=== PATIENT | male | born 1980 | race Caucasian/White ===

== ENCOUNTER 2020-02-27 11:41 | Observation (INO) ==
[2020-02-27] MEDS ORDERED: ONDANSETRON INJ 2 MG/ML 2 ML VIAL IV STA (12:06)
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
[2020-02-27] MEDS ORDERED: SODIUM CHLORIDE 0.9% 1000ML 1,000 ML IV SCH (12:15)
--- NOTE | 2020-02-27 12:21 | XRay Report ---
XR chest 1V portable CLINICAL HISTORY: Altered mental status COMPARISON STUDY: No previous studies for comparison. FINDINGS: The heart is the upper limits of normal in size. There is no failure. There is no focal pul monary consolidation. There are no pleural effusions. An opacity at the right medial lung base is fel t to represent a vascular summation.[ IMPRESSION: No active disease in the chest. ACT 112: Negative or not required by law. Electronically signed by: Jesus Charles M.D. 02/27/2020 12:20 PM
[2020-02-27 12:30] LABS: Appearance Urine Clear (Clear); Bacteria Urine Automated Negative (Negative); Bilirubin Urine Negative (Negative); Blood Urine 3+ (Negative); Color Urine Yellow; Glucose Urine UA Negative (Negative); Ketones Urine 2+ (Negative); Leukocyte Esterase Urine Trace (Negative); Nitrite Urine Negative (Negative); Protein Urine 1+ (Negative); RBC Urine Automated >30 /hpf (0-4); Specific Gravity Urine 1.027 (1.000-1.030); Urobilinogen Urine Negative (Negative)
--- NOTE | 2020-02-27 12:46 | Electrocardiogram Report ---
Test Reason : Blood Pressure : / mmHG Vent. Rate : 076 BPM Atrial Rate : 076 BPM P-R Int : 134 ms QRS Dur : 086 ms QT Int : 402 ms P-R-T Axes : 030 024 038 degrees QTc Int : 452 ms Normal sinus rhythm Normal ECG No previous ECGs available Confirmed by Wei Nogueira ([id number]) on 02/27/2020 12:46:38 PM Referred By: REFERRED SELF Confirmed By:Wei Nogueira
[2020-02-27 12:54] LABS: Basophils # (auto) 0.02 K/uL (0-0.2); Basophils % (auto) 0.1 %; Hematocrit (blood only) 44.5 % (42-52); Hemoglobin 15.1 g/dL (14.0-18.0); Immature Granulocytes # (auto) 0.12 K/uL (0.00-0.02); Immature Granulocytes % (auto) 0.6 %; Lymphocytes # (auto) 1.32 K/uL (1.2-3.4); Lymphocytes % (auto) 6.4 %; Mean Corpuscular Hemoglobin 29.7 pg (25-34); Mean Corpuscular Hgb Conc 33.9 g/dL (32-36); Mean Corpuscular Volume 87.4 fL (80-100); Mean Platelet Volume 9.3 fL (7.4-10.4); Monocytes # (auto) 1.67 K/uL (0.11-0.59); Monocytes % (auto) 8.1 %; Neutrophils # (auto) 17.54 K/uL (1.4-6.5); Neutrophils % (auto) 84.8 %; Platelet Count 450 K/uL (130-400); RDW Coefficient of Variation 14.3 % (11.5-14.5); RDW Standard Deviation 45.7 fL (36.4-46.3); Red Blood Count 5.09 M/uL (4.7-6.1); White Blood Count 20.67 K/uL (4.8-10.8)
[2020-02-27 12:55] LABS: iSTAT Creatinine 1.2 mg/dl (0.6-1.3); iSTAT Hemoglobin 15.6 g/dl (14.0-18.0); iSTAT Ionized Calcium 1.22 mmol/l (1.12-1.32); iSTAT Potassium 3.9 mmol/L (3.3-5.0)
[2020-02-27] MEDS ORDERED: IOVERSOL 100ml IV PRN (13:06)
[2020-02-27] MEDS ORDERED: cefTRIAXone SODIUM 1,000 MG/50 ML BAG IV STA (13:08)
[2020-02-27 13:12] LABS: Alanine Aminotransferase 77 U/L (12-78); Albumin Level 3.9 gm/dl (3.4-5.0); Aspartate Aminotransferase 83 U/L (15-37); BUN Creatinine Ratio 19.9 (10-20); Blood Urea Nitrogen 25 mg/dl (7-18); Calcium 9.6 mg/dl (8.5-10.1); Carbon Dioxide 22 mmol/L (21-32); Chloride 109 mmol/L (98-107); Est GFR (African American) 82.5; Est GFR (Non-African American) 71.2; Glucose 100 mg/dl (70-99); Lipase 133 U/L (73-393); Potassium 3.9 mmol/L (3.5-5.1); Sodium 140 mmol/L (136-145)
--- NOTE | 2020-02-27 13:14 | CT Scan Report ---
HEAD CT NONCONTRAST CT DOSE: 788.63 mGycm HISTORY: Altered mental status. TECHNIQUE: Multiaxial CT images of the head were performed without the use of intravenous contrast. A utomated exposure control was utilized for this study. A dose lowering technique was utilized adheri ng to the principles of ALARA. Comparison: None. Findings: The paranasal sinuses and mastoid air cells are clear. The calvarium and skull base are int act. The ventricles and sulci are within normal limits. There is no mass, hematoma, midline shift, or acute infarct. Impression: No acute intracranial abnormality. ACT 112: Negative or not required by law. Electronically signed by: Donavon Robles M.D. 02/27/2020 1:12 PM
--- NOTE | 2020-02-27 13:21 | CT Scan Report ---
CT SCAN OF THE ABDOMEN AND PELVIS WITH IV CONTRAST CLINICAL HISTORY: Left lower quadrant abdominal pain. COMPARISON STUDY: No priors. TECHNIQUE: Following the IV administration of 94 cc of Optiray 320, CT scan of the abdomen and pelvi s is performed from the lung bases to the proximal femora. Images are reviewed in the axial, sagittal , and coronal planes. IV contrast was administered without complication. A dose lowering technique wa s utilized adhering to the principles of ALARA. The examination is degraded by motion artifact, as we ll as by streak artifact from the arms which could not be elevated above the abdomen. CT DOSE: 1415.23 mGycm FINDINGS: Lung bases: The heart is normal in size and without pericardial effusion. The lung bases are clear no ting dependent atelectasis. There is a small hiatal hernia. Liver: The contrast-enhanced liver is mildly enlarged, measuring 18.2 cm in length. The liver demonst rates diffusely diminished attenuation consistent with hepatic steatosis. Fatty sparing is seen adjac ent to gallbladder fossa. There is no intrahepatic biliary ductal dilatation. The hepatic veins and p ortal veins are patent. Gallbladder: Unremarkable. Spleen: Normal in size and attenuation. Pancreas: Unremarkable. Adrenal glands: Unremarkable. Kidneys: The contrast enhanced kidneys are normal in size. There is a 4 mm obstructing calculus protr uding from the right vesicoureteral junction seen on image #452. This causes mild to moderate right-s ided hydroureteronephrosis. There is associated right-sided perinephric and periureteric stranding. E nhancement of the right kidney is slightly heterogeneous. No additional renal calculi are clearly rajni ntified on this contrast-enhanced examination. There is no left-sided hydronephrosis. Abdominal vasculature: The abdominal aorta is normal in course and caliber. Bowel: There is no bowel obstruction. The appendix is well-visualized and normal. Peritoneum: There is no intraperitoneal free air or abdominal ascites. There is a small fat-containin g umbilical hernia. Lymphadenopathy: None. Pelvic viscera: The bladder, prostate, and seminal vesicles are normal as visualized. There are small bilateral fat-containing inguinal hernias. Skeletal structures: No lytic or blastic lesions are seen. IMPRESSION: 1. Streak and motion degraded examination. 2. There is a 4 mm obstructing calculus protruding from the right vesicoureteral junction. This cause s mild to moderate right-sided hydroureteronephrosis. 3. There is slightly heterogeneous enhancement of the right kidney, likely related to obstruction/hyd ronephrosis. Correlate clinically and with urinalysis for evidence of superimposed urinary tract infe ction. 4. Hepatomegaly and hepatic steatosis. 5. Additional findings as above. ACT 112: Negative or not required by law. Electronically signed by: Jesus Grady M.D. 02/27/2020 1:20 PM
[2020-02-27 13:23] LABS: Alkaline Phosphatase 74 U/L (45-117); Bilirubin,Total 0.6 mg/dl (0.2-1); Globulin 4.1 gm/dl (2.5-4.0); Troponin I < 0.015 ng/ml (0-0.045)
[2020-02-27 13:38] LABS: Base Excess VBG -2.6 mEq/L; HCO3 VBG 24 mmol/L; PCO2 VBG 46 mmHg (38-50); PO2 VBG 31 mmHg; pH VBG 7.33 (7.36-7.41)
[2020-02-27] MEDS ORDERED: SODIUM CHLORIDE 0.9% 1000ML 1,000 ML IV ONE (13:41)
[2020-02-27 13:45] LABS: Oxygen Saturation VBG < 60.0 %
[2020-02-27] MEDS ORDERED: MoRPHine SULFATE 2 MG/ML CARP IV STA (15:04)
--- NOTE | 2020-02-27 15:05 | History & Physical Report ---
Date of Service February 27, 2020 Assessment & Plan (1) Abdominal pain: (2) Hydronephrosis with urinary obstruction due to renal calculus: This is a 39-year-old male who has significant past medical history of intellectual disability, schizophrenia, major depressive disorder, history of seizure disorder with last known seizure at the age of 23, T2DM, HTN, GERD, obesity who presents to ED from [facility] secondary to tachycardia, tachypnea and inability to communicate needs. CT scan abd/pelvis 4 mm obstructing calculus protruding from the right vesicoureteral junction. This causes mild to moderate right-sided hydroureteronephrosis. Slightly heterogeneous enhancement of the right kidney, likely related to obstruction/hydronephrosis. Correlate clinically and with urinalysis for evidence of superimposed urinary tract infection. He does not meet SIRS/Sepsis criteria, but does have leukocytosis of 20k. In ED he received 3L IVF along with IV ceftriaxone admit to med/surg consult urology - spoke with VISHAL Gomez continue IV antibiotics continue IVF strain all urine remain NPO until seen by urology scheduled toradol ( feel pt is unable to communicate to staff when in pain ) prn pain meds for severe pain antiemetics continue home flomax obtain blood cultures, urine tox screen (3) Intellectual disability: (4) Schizophrenia: continue haloperidol, gabapentin low threshold for psych involvement (5) Seizures: no seizure like activity according to records/pt last seizure at age 23 continue lithium, gabapentin lithium level 0.7 (6) Hypertension: BP mildly elevated in ED, likely due to pain continue metoprolol and diltiazem (7) Diabetes mellitus: unknown a1c, obtain in a.m. He is not on any hypoglycemics Novolog sliding scale per protocol monitor (8) GERD (gastroesophageal reflux disease): continue PPI (9) DVT prophylaxis: SCD/TEDS for now due to possible surgical procedure Disposition: admit to med/surg, pt admitted from the [facility], case management consulted Follow up: Provider at [facility] upon discharge Pt was seen and examined in collaboration with Dr. Santoro, please see addendum Pt sr. social media & mobile manager from [place] [employer] is Lamonte and can be contacted at [phone] The [facility] contact info is [phone] - disease case manager Ann [place] 359 History of Present Illness Chief Complaint: Change in mental status, tachypnea and tachycardia. Primary Care Provider: SE BAXTER This is a 39-year-old male who has significant past medical history of intellectual disability, schizophrenia, major depressive disorder, history of seizure disorder with last known seizure at the age of 23, T2DM, HTN, GERD, obesity who presents to ED from [facility] secondary to tachycardia, tachypnea and inability to communicate needs. History unreliable from patient given current state. I did speak with [facility] nurse Eliazar who states at baseline patient is very low functioning. He has most inability to maintain meaningful conversation, and mostly will reiterate speech. This morning when he got up they noted him to be tachycardic, tachypneic and inability to communicate what was going on; therefore, they sent him to ED for further evaluation. The patient was sent to the [facility] on 02/20/2020. He had otherwise been doing fine until today. He did not have anything to eat or drink yet today. In speaking with the patient he states that he has not felt well since last night. He complains of abdominal pain, nausea, feeling feverish and general malaise. He denies any documented fever, chills, sweats, chest pain, shortness of breath, palpitations, cough, hematemesis, hemoptysis, melena, hematochezia, change in bowel or urinary habits. Again ROS relatively unreliable. He denies any suicidal or homicidal ideations. When asked what kind of medical problems he has he states, "I do not know." He denies illicit drug use or overdose of illicit substance. He denies smoking. Hx alcohol use, "once in a blue blake with a beer." Allergies Allergy/AdvReac Type Severity Reaction Status Date / Time phenobarbital AdvReac Severe Becomes Unverified 02/27/20 12:46 very mean Home Medications Home Medications Medication Instructions Recorded Confirmed Type diltiazem HCl [Cardizem CD] 120 mg PO QAM 02/27/20 02/27/20 History gabapentin 300 mg PO BID 02/27/20 02/27/20 History haloperidol 10 mg PO BID 02/27/20 02/27/20 History hydroxyzine pamoate 100 mg PO HS 02/27/20 02/27/20 History lithium carbonate 450 mg PO BID 02/27/20 02/27/20 History loratadine [Claritin] 10 mg PO QAM 02/27/20 02/27/20 History metoprolol succinate 150 mg PO QAM 02/27/20 02/27/20 History pantoprazole 40 mg PO QAM 02/27/20 02/27/20 History tamsulosin [Flomax] 0.4 mg PO HS 02/27/20 02/27/20 History Past Med/Surg History Medical History (Updated 02/28/20 @ 12:48 by Stephen Valenzuela MD) Diabetes mellitus GERD (gastroesophageal reflux disease) Hypertension Hypothyroidism (acquired) Intellectual disability Obesity Schizophrenia Seizures Surgical History (Updated 02/27/20 @ 15:08 by Deepa Reid PA-C) History of foot surgery History of skin graft L foot Family History (Updated 02/27/20 @ 15:09 by Deepa Reid PA-C) Other Family history unobtainable due to patient's condition Social History (Updated 02/27/20 @ 15:11 by Deepa Reid PA-C) Preferred Language: Eritrean Communication Ability: Impaired Service Center Manager Required: No Current Living Situation: Alone Current Living Situation Comment: Unknown - transfer to ER from [place] current occupational status: unemployed Feels Safe at Home: Yes Smoking Status: Unknown if ever smoked Review of Systems Review of Systems: All systems reviewed & are unremarkable except as noted in HPI & below Physical Exam Physical Exam: Constitutional: Morbidly obese, male, acutely ill, WD/WN, vitals as above, NAD, lying in bed, tachypneic, answers yes/no questions Head: Normocephalic, Atraumatic Eyes: PERRL, conjunctivae normal, anicteric sclerae ENMT: external ear and nose normal, oropharynx dry mucous membranes Neck: trachea midline, no thyromegaly normal visual inspection Respiratory: increased respiratory effort, lungs clear to auscultation, no wheeze, rales, rhonchi. Normal insp/exp effort, no accessory muscle use Cardiovascular: RRR, no murmur, no edema Vessels: no JVD or carotid bruit Chest: normal inspection of chest Abdomen:protuberant abd, normal bowel sounds, soft, tender to palpation suprapubically, no hepatosplenomegaly Musculoskeletal: no cyanosis or clubbing,AROM to all extremities , L foot skin graft noted Skin: no rashes, warm and dry normal turgor Neurologic: PERRL, EOMI, accommodation nl, no face palsy, no dysarthria CN's II-XI intact bilaterally and moves all extremities Psychiatric: A+O to self and place, dysthymic affect Lymphatic: no cervical or axillary lymphadenopathy : deferred Results & Data Results & Data ([facility]) Vital Signs (Past 12 Hours) Vital Signs Temp Pulse Pulse Resp BP BP Pulse Ox 02/27/20 14:13 87 18 149/84 H 98 02/27/20 13:23 82 18 141/76 H 98 02/27/20 12:37 84 18 152/99 H 93 02/27/20 11:57 36.8 C 92 H 18 141/84 H 98 Laboratory Results Short CBC 02/27/20 Range/Units 12:46 WBC 20.67 H (4.8-10.8) K/uL Hgb 15.1 (14.0-18.0) g/dL Hct 44.5 (42-52) % Plt Count 450 H (130-400) K/uL BMP 02/27/20 12:46 Sodium 140 Potassium 3.9 Chloride 109 H Carbon Dioxide 22 BUN 25 H Creatinine 1.27 Glucose 100 H Calcium 9.6 Cardiac Enzymes 02/27/20 Range/Units 12:46 Troponin I < 0.015 (0-0.045) ng/ml Liver Function 02/27/20 Range/Units 12:46 Total Bilirubin 0.6 (0.2-1) mg/dl AST 83 H (15-37) U/L ALT 77 (12-78) U/L Alkaline Phosphatase 74 (45-117) U/L Albumin 3.9 (3.4-5.0) gm/dl Urine 02/27/20 Range/Units 11:55 Urine Color Yellow Urine Appearance Clear (Clear) Urine pH 5.0 (4.5-7.5) Ur Specific [place] 1.027 (1.000-1.030) Urine Protein 1+ H (Negative) Urine Glucose (UA) Negative (Negative) Diagnostic Findings Head CT: Impression: No acute intracranial abnormality. CXR: IMPRESSION: No active disease in the chest. CT abd/pelvis: 1. Streak and motion degraded examination. 2. There is a 4 mm obstructing calculus protruding from the right vesicoureteral junction. This causes mild to moderate right-sided hydroureteronephrosis. 3. There is slightly heterogeneous enhancement of the right kidney, likely related to obstruction/hydronephrosis. Correlate clinically and with urinalysis for evidence of superimposed urinary tract infection. 4. Hepatomegaly and hepatic steatosis. 5. Additional findings as above. Medications Administered Ioversol (Optiray 320 100ml) 94 ml IV ONCE PRN PRN Reason: Interaction Checking Stop: 03/02/20 13:05 Last Admin: 02/27/20 13:07 Dose: 94 ml Documented by: [id number] Discontinued Medications Sodium Chloride (Nss 1000ml) 1,000 mls @ 999 mls/hr IV .Q1H1M COREY Stop: 02/27/20 13:15 Last Infusion: 02/27/20 13:30 Dose: 0 mls/hr Documented by: [id number] Admin: 02/27/20 12:23 Dose: 999 mls/hr Documented by: [id number] Ceftriaxone Sodium (Rocephin) 1,000 mg in 50 mls @ 100 mls/hr IV NOW STA Stop: 02/27/20 13:37 Last Infusion: 02/27/20 14:06 Dose: 0 mls/hr Documented by: [id number] Admin: 02/27/20 13:30 Dose: 100 mls/hr Documented by: [id number] Sodium Chloride (Nss 1000ml) 1,000 mls @ 999 mls/hr IV .Q1H1M ONE Stop: 02/27/20 14:41 Last Admin: 02/27/20 14:13 Dose: 999 mls/hr Documented by: [id number] Ondansetron HCl (Zofran) 4 mg IV NOW STA Stop: 02/27/20 12:07 Last Admin: 02/27/20 12:23 Dose: 4 mg Documented by: [id number] ECG Rate (beats per minute): 76 Rhythm: normal sinus Additional Comments: QTC 452 Code Status & VTE Plan Code Status Full Code VTE Prophylaxis Plan VTE Prophylaxis will be ordered: Yes Supervising Physician Co-Signing Physician Notes ATTENDING ADDENDUM : 39 yo male with intellectual disability , depression , hx of Seizure disorder , Schoziphrenia sent from [facility] facility for concern -tachycardia , tachypnia , pt unable to communicate his discomfort CT abdomen /pelvis shows rt sided 4 mm obstructive ureteric stone no evidence of sepsis admitted to medical floor pt possibly will need urologic procedure , ureteric stent placement keep NPO till urology eval pain control Iv fluid empiric abx with Iv rocephin for complicated UTI Kaylie Santoro MD (1) Abdominal pain Abdominal location: left lower quadrant Qualified Code(s): R10.32 - Left lower quadrant pain
[2020-02-27 15:14] LABS: D Dimer 300 ug/L FEU (0-500)
[2020-02-27] MEDS ORDERED: CARBOHYDRATES FOR HYPOGLYCEMIA PO PRN (15:56)
[2020-02-27] MEDS ORDERED: GLUCOSE 10 TABS/TUBE PO PRN (15:56)
[2020-02-27] MEDS ORDERED: cefTRIAXone SODIUM 1,000 MG in DEXTROSE 5% 50 ML IV SCH (15:56)
[2020-02-27] MEDS ORDERED: PROMETHAZINE HCL 12.5 MG in SODIUM CHLORIDE 0.9% 50 ML IV PRN (15:56)
[2020-02-27] MEDS ORDERED: DEXTROSE 50% 50 ML SYRINGE IV PRN (15:56)
[2020-02-27] MEDS ORDERED: ALUMINUM/MAGNESIUM SUSP 30 ML UDC PO PRN (15:56)
[2020-02-27] MEDS ORDERED: HYDROmorphone INJ 1 MG/ML SYRINGE IV PRN (15:56)
[2020-02-27] MEDS ORDERED: MAGNESIUM HYDROXIDE SUSP 30 ML UDC PO PRN (15:56)
[2020-02-27] MEDS ORDERED: ACETAMINOPHEN 325 MG TAB PO PRN (15:56)
[2020-02-27] MEDS ORDERED: GLUCAGON FOR INJ 1 MG VIAL SQ PRN (15:56)
[2020-02-27] MEDS ORDERED: GLUCOSE 40% GEL 15 GM TUBE PO PRN (15:56)
[2020-02-27] MEDS: LACTATED RINGER'S 1,000 ML IV SCH (16:12)
[2020-02-27] MEDS ORDERED: INSULIN ASPART 100 UNITS/ML 3 ML PEN SC SCH ×3 (16:30→21:00)
[2020-02-27] MEDS: KETOROLAC TROMETHAMINE 15 MG/ML VIAL IV SCH ×2 (16:55→21:09)
[2020-02-27] MEDS ORDERED: Nursing to Pharmacy Communication ONE ×3 (16:56→23:22)
[2020-02-27 21:31] LABS: Amphetamines+Metham, Urine Neg (Neg); Barbiturates, Urine Neg (Neg); Benzodiazepine, Urine Neg (Neg); Cocaine, Urine Neg (Neg); MDMA (Ecstacy), Urine Neg (Neg); Methadone, Urine Neg (Neg); Opiate, Urine Pos (Neg); Phencyclidine, Urine Neg (Neg)
[2020-02-27] MEDS: haloperidoL 5 MG TAB PO SCH (22:03)
[2020-02-27] MEDS: LITHIUM CARBONATE 450 MG TABCR PO SCH (22:03)
[2020-02-27] MEDS: GABAPENTIN 300 MG CAP PO SCH (22:04)
[2020-02-27] MEDS: TAMSULOSIN HCL 0.4 MG CAP PO SCH (22:04)
--- NOTE | 2020-02-28 00:56 | Consultation Report ---
DATE OF CONSULTATION: 02/27/2020 REASON FOR THE CONSULT: Right ureteral stone. HISTORY OF PRESENTATION: The patient is a 39-year-old male who was admitted from the [facility]. The patient has significant past medical history for intellectual disability, schizophrenia, major depressive disorder, history of seizure disorder, type 2 diabetes, hypertension, GERD, and obesity. The patient presented today to the Emergency Room with tachycardia, tachypnea, and inability to communicate needs. He clearly is uncomfortable. He is a very poor historian. In the Emergency Room, a CAT scan was obtained of his abdomen and pelvis, which showed a 4 mm stone that was at the UVJ and looks apparently to be almost protruding into the UVJ. This was causing mild to moderate obstruction and the patient does when asked to point to his stomach is showing some sort of discomfort but in the middle of his stomach. There was some slight heterogeneous enhancement of the right kidney. He does have a white blood cell count of 20,000. However, he does not have any pyuria or bacteriuria and he has no fever. He received 3 liters of IV fluid in the Emergency Room and also IV ceftriaxone and was admitted to the medical service. The patient is being scheduled Toradol and p.r.n. meds for severe pain and Flomax. Please refer to the history and physical for further review. The admitting physician did talk to the person who is taking care of him at the [facility] and he is a very low functioning person and again I was unable to communicate with the person except for to obtain insight into that he does still have some abdominal pain this evening. ALLERGIES: INCLUDE PHENOBARBITAL. HOME MEDICATIONS: Diltiazem, gabapentin, haloperidol, hydroxyzine, lithium carbonate, Claritin, metoprolol, pantoprazole, and Flomax. PAST MEDICAL HISTORY: As previously described. He has diabetes type 2, hypertension, hypothyroidism, intellectual disability, obesity, schizophrenia and seizures. PAST SURGICAL HISTORY: He has a history of foot surgery and history of skin graft to his left foot. SOCIAL HISTORY: The patient apparently does occasionally smoke and also drinks alcohol. PHYSICAL EXAMINATION: GENERAL: The patient is morbidly obese and moderately distressed. He does answer questions, but only with pointing yes or no. HEENT: Normocephalic and atraumatic. Unremarkable. LUNGS: He has no clear respiratory distress. EXTREMITIES: He has no significant pedal edema. ABDOMEN: Shows protuberant. He is somewhat obese and he does point to tenderness in the abdomen, it is soft without significant tympany. SKIN: Normal. NEUROLOGIC: He is alert and oriented without any focal sensory deficits. GENITOURINARY: Otherwise, deferred. LABORATORY DATA: Again, white blood cell counts previously stated was elevated at 20. His creatinine was 1.27 in the Emergency Room. Again, urine did have blood and protein, but no pyuria. ASSESSMENT: We will reassess in the morning. The patient is n.p.o. I instructed the nurses to call if he develops a temperature of 101 or greater. Continue antibiotics and we will check a KUB. His urine is being strained and given the small size of the stones, it may be 4 mm at the largest and it is right at the UVJ, which certainly give this patient a trial of passage prior to trying to intervene.
[2020-02-28] MEDS: LACTATED RINGER'S 1,000 ML IV SCH ×3 (01:23→17:59)
[2020-02-28] MEDS: KETOROLAC TROMETHAMINE 15 MG/ML VIAL IV SCH ×2 (04:16→08:57)
[2020-02-28 06:01] LABS: Basophils # (auto) 0.02 K/uL (0-0.2); Basophils % (auto) 0.2 %; Eosinophils # (auto) 0.06 K/uL (0-0.5); Eosinophils % (auto) 0.5 %; Hematocrit (blood only) 41.5 % (42-52); Hemoglobin 13.6 g/dL (14.0-18.0); Immature Granulocytes # (auto) 0.07 K/uL (0.00-0.02); Immature Granulocytes % (auto) 0.6 %; Lymphocytes # (auto) 2.08 K/uL (1.2-3.4); Lymphocytes % (auto) 16.7 %; Mean Corpuscular Hemoglobin 29.2 pg (25-34); Mean Corpuscular Hgb Conc 32.8 g/dL (32-36); Mean Corpuscular Volume 89.2 fL (80-100); Mean Platelet Volume 9.5 fL (7.4-10.4); Monocytes # (auto) 1.21 K/uL (0.11-0.59); Monocytes % (auto) 9.7 %; Neutrophils # (auto) 8.98 K/uL (1.4-6.5); Neutrophils % (auto) 72.3 %; Platelet Count 381 K/uL (130-400); RDW Coefficient of Variation 14.4 % (11.5-14.5); RDW Standard Deviation 47.2 fL (36.4-46.3); Red Blood Count 4.65 M/uL (4.7-6.1); White Blood Count 12.42 K/uL (4.8-10.8)
[2020-02-28 06:29] LABS: BUN Creatinine Ratio 19.3 (10-20); Blood Urea Nitrogen 19 mg/dl (7-18); Calcium 9.1 mg/dl (8.5-10.1); Carbon Dioxide 24 mmol/L (21-32); Chloride 110 mmol/L (98-107); Est GFR (African American) 114.3; Est GFR (Non-African American) 98.6; Glucose 82 mg/dl (70-99); Potassium 3.5 mmol/L (3.5-5.1); Sodium 141 mmol/L (136-145)
[2020-02-28 06:30] LABS: Beta-Hydroxybutyrate 15.65 mg/dl (0.2-2.81)
[2020-02-28] MEDS: INSULIN ASPART 100 UNITS/ML 3 ML PEN SC SCH ×4 (06:35→21:23)
[2020-02-28 07:35] LABS: Estimated Average Glucose 140 mg/dl; Hemoglobin A1C 6.5 % (4.5-5.6)
[2020-02-28] MEDS: haloperidoL 5 MG TAB PO SCH ×2 (08:30→21:27)
[2020-02-28] MEDS: PANTOprazole 40 MG TAB PO SCH (08:30)
[2020-02-28] MEDS: METOPROLOL SUCC 50MG EXT REL TAB PO SCH (08:30)
[2020-02-28] MEDS: LITHIUM CARBONATE 450 MG TABCR PO SCH (08:30)
[2020-02-28] MEDS: GABAPENTIN 300 MG CAP PO SCH ×2 (08:30→21:27)
[2020-02-28] MEDS: LORATADINE 10 MG TAB PO SCH (08:30)
[2020-02-28] MEDS: dilTIAZem HCL 120 MG CAPCR PO SCH (08:30)
--- NOTE | 2020-02-28 09:54 | XRay Report ---
XR KUB/Abdomen 1 view CLINICAL HISTORY: ureteral stone COMPARISON STUDY: CT scan dated 02/27/2020 FINDINGS: There is no pathologic bowel dilatation. The right UVJ calculus described on the recent CT scan is not visible on conventional radiographic imaging. IMPRESSION: 1. Nonobstructive bowel gas pattern 2. No urinary tract calculi are visualized on conventional radiographic imaging ACT 112: Negative or not required by law. Electronically signed by: Jesus Charles M.D. 02/28/2020 9:53 AM
--- NOTE | 2020-02-28 12:48 | Urology Progress Note ---
Date of Service February 28, 2020 Assessment & Plan (1) Kidney stones: Small stone that appears to be protruding into the bladder at the right UVJ I am uncertain that he has passed the stone yet but his likelihood of passage would be extremely high Continue hydration, tamsulosin, supportive care N.p.o. at midnight in case of failure to progress If he passes the stone, likely can be discharged Subjective Challenging to obtain detailed information from Tan this morning He answered with a series of grunts without any significant verbalization To the best of my ability I suspect he is still having some right flank pain Not severe No hematuria, no stone passage yet Mild nausea? Review of Systems Review of Systems: Unobtainable due to mental health condition Physical Exam Physical Exam: No rebound, no guarding Minimal movement and interaction as I spoke with himhe certainly acknowledge my presence and grunted in response to my questions but little beyond that Constitutional: well developed and well nourished Respiratory: no respiratory distress Cardiovascular: Extremities: no pedal edema Gastrointestinal (Abdomen): Inspection/Auscultation: abdomen normal to inspection Results & Data Vital Signs (Past 12 Hours) Vital Signs Temp Pulse Resp BP Pulse Ox 02/28/20 07:55 36.5 C 84 18 136/74 95 PG Care Time/CCT Total # of Minutes Spent Total Time Spent with Patient: Total time spent is greater than 50% in coordination of care (as documented) at patient's floor/unit and/or counseling patient: Coding Level of Care Code 23121 Subseq Hosp Care Lvl 2 Diagnoses Kidney stones N20.0
[2020-02-28] MEDS ORDERED: Nursing to Pharmacy Communication ONE (13:04)
[2020-02-28] MEDS: cefTRIAXone SODIUM 2,000 MG in DEXTROSE 5% 50 ML IV SCH (13:54)
--- NOTE | 2020-02-28 15:23 | Hospitalist Progress Note ---
Date of Service February 28, 2020 Assessment & Plan (1) Abdominal pain: (2) Hydronephrosis with urinary obstruction due to renal calculus: Patient is a 39 yr male with H/O Intellectual disability, schizophrenia, major depressive disorder, seizure disorder with last known seizure at the age of 23, T2DM, HTN, GERD, obesity who presents to ED from [facility] secondary to tachycardia, tachypnea and inability to communicate needs. Altered Mental Status Possible Encephalopathy DD: Infection/Intolerance to Pat[place]ia Difficult to asses given Lethargy/intellectual disability CT head:No acute intracranial abnormality. Patagonia discontinued--OK as per his Psychiatrist Dr. Mc Patagonia levels:normal Monitor mental status Follow up Blood/Urine Cultures Ureteral Stone Obstructive Uropathy --CT scan abd/pelvis 4 mm obstructing calculus protruding from the right vesicou reteral junction. This causes mild to moderate right-sided hydroureteronephrosis. Slightly heterogeneous enhancement of the right kidney, likely related to obstruction/hydronephrosis. Correlate clinically and with urinalysis for evidence of superimposed urinary tract infection. --[place] of passage --Continue IV fluids, Flomax --Strain Urine --Appreciate Urology Input --Pain control --Monitor renal function Abnormal UA R/O UTI Urine Cx:pending Continue Empiric Rocephin (3) Intellectual disability: (4) Schizophrenia: continue haloperidol, gabapentin [place] discontinued (? Intolerance) Discussed with Psychiatry ([phone]) on 02/28/20 (5) Seizures: no acute issues According to records/pt last seizure at age 23 continue gabapentin (6) Hypertension: BP mildly elevated continue Metoprolol, Diltiazem Monitor (7) Diabetes mellitus: Diet Controlled Hb A1C:6.5 Novolog sliding scale per protocol monitor BGs (8) GERD (gastroesophageal reflux disease): continue PPI (9) DVT prophylaxis: Heparin SQ Code Status Full Code Disposition: Plan to discharge back to [facility] Admission and Anticipated Discharge Date Admission Date: February 27, 2020 Subjective Patient is seen and examined at bedside Very lethargic this morning Could not provide any history due to lethargy/intellectual disability Follows very simple commands ? Some right flank pain Discussed with his psychiatrist today No family at bedside Review of Systems Review of Systems: Unobtainable due to reduced consciousness Physical Exam Physical Exam: Physical Exam: Vitals signs as noted above General Appearance:Obese, no apparent distress Head: normocephalic, Atraumatic Eyes: normal inspection, EOMI Neck: supple, Trachea midline Respiratory/Chest: Normal breath sounds, CTA, No accessory muscle use Cardiovascular: S1, S2, No murmur Abdomen/GI:Soft, Non tender, Bowel sounds present Extremities/Musculoskelatal:normal inspection, no edema Neurologic/Psych:Moves all extremities, Lethargic Skin: normal color, warm Results & Data Results & Data ([facility]) Vital Signs (Past 12 Hours) Vital Signs Temp Pulse Resp BP Pulse Ox 02/28/20 07:55 36.5 C 84 18 136/74 95 Laboratory Results Short CBC 02/28/20 Range/Units 05:30 WBC 12.42 H (4.8-10.8) K/uL Hgb 13.6 L (14.0-18.0) g/dL Hct 41.5 L (42-52) % Plt Count 381 (130-400) K/uL BMP 02/28/20 05:30 Sodium 141 Potassium 3.5 Chloride 110 H Carbon Dioxide 24 BUN 19 H Creatinine 0.97 D Glucose 82 Calcium 9.1 (1) Abdominal pain Abdominal location: left lower quadrant Qualified Code(s): R10.32 - Left lower quadrant pain
[2020-02-28] MEDS: HEPARIN SOD 5,000 UNIT/0.5 ML VIAL SQ SCH (21:23)
[2020-02-28] MEDS: TAMSULOSIN HCL 0.4 MG CAP PO SCH (21:27)
[2020-02-29] MEDS: LACTATED RINGER'S 1,000 ML IV SCH ×3 (04:00→12:39)
[2020-02-29 06:11] LABS: Basophils # (auto) 0.03 K/uL (0-0.2); Basophils % (auto) 0.3 %; Eosinophils # (auto) 0.09 K/uL (0-0.5); Eosinophils % (auto) 0.8 %; Hematocrit (blood only) 42.6 % (42-52); Hemoglobin 13.9 g/dL (14.0-18.0); Immature Granulocytes # (auto) 0.06 K/uL (0.00-0.02); Immature Granulocytes % (auto) 0.5 %; Lymphocytes # (auto) 2.26 K/uL (1.2-3.4); Lymphocytes % (auto) 18.9 %; Mean Corpuscular Hgb Conc 32.6 g/dL (32-36); Mean Corpuscular Volume 88.9 fL (80-100); Mean Platelet Volume 9.3 fL (7.4-10.4); Monocytes # (auto) 0.74 K/uL (0.11-0.59); Monocytes % (auto) 6.2 %; Neutrophils # (auto) 8.79 K/uL (1.4-6.5); Neutrophils % (auto) 73.3 %; Platelet Count 420 K/uL (130-400); RDW Standard Deviation 45.6 fL (36.4-46.3); Red Blood Count 4.79 M/uL (4.7-6.1); White Blood Count 11.97 K/uL (4.8-10.8)
[2020-02-29] MEDS: HEPARIN SOD 5,000 UNIT/0.5 ML VIAL SQ SCH ×3 (06:33→20:37)
[2020-02-29] MEDS: INSULIN ASPART 100 UNITS/ML 3 ML PEN SC SCH ×4 (06:34→20:37)
[2020-02-29 06:54] LABS: BUN Creatinine Ratio 14.5 (10-20); Blood Urea Nitrogen 12 mg/dl (7-18); Calcium 8.3 mg/dl (8.5-10.1); Carbon Dioxide 25 mmol/L (21-32); Chloride 110 mmol/L (98-107); Est GFR (Non-African American) 112.2; Glucose 87 mg/dl (70-99); Potassium 3.6 mmol/L (3.5-5.1); Sodium 142 mmol/L (136-145)
[2020-02-29] MEDS: LORATADINE 10 MG TAB PO SCH (08:29)
[2020-02-29] MEDS: PANTOprazole 40 MG TAB PO SCH (08:29)
[2020-02-29] MEDS: METOPROLOL SUCC 50MG EXT REL TAB PO SCH ×2 (08:29→18:06)
[2020-02-29] MEDS: haloperidoL 5 MG TAB PO SCH ×2 (08:29→20:26)
[2020-02-29] MEDS: dilTIAZem HCL 120 MG CAPCR PO SCH ×2 (08:29→18:06)
[2020-02-29] MEDS: GABAPENTIN 300 MG CAP PO SCH ×2 (08:29→20:26)
[2020-02-29] MEDS: KETOROLAC TROMETHAMINE 15 MG/ML VIAL IV PRN ×3 (08:31→23:44)
--- NOTE | 2020-02-29 12:34 | XRay Report ---
XR KUB/Abdomen 1 view CLINICAL HISTORY: Kidney Stone nephrocalcinosis COMPARISON STUDY: 02/28/2020 FINDINGS: The soft tissues, psoas shadows, renal outlines and intestinal gas pattern appear normal. T here is no evidence for bowel obstruction. No abnormal abdominal calcifications are seen. IMPRESSION: Normal study. No change from the prior exam ACT 112: Negative or not required by law. The above report was generated using voice recognition software. It may contain grammatical, syntax or spelling errors. Electronically signed by: Diego Nicolas M.D. 02/29/2020 12:33 PM
--- NOTE | 2020-02-29 12:38 | XRay Report ---
XR chest 1V portable HISTORY: Shortness of Breath COMPARISON: Chest 02/27/2020. FINDINGS: There are low lung volumes. The heart remains mildly enlarged. No evidence for pulmonary ed keon. No pleural effusions. No pneumothorax. Progression of the bibasilar densities, right greater [place] n left. IMPRESSION: Progressive bibasilar densities, right greater than left. This favors atelectasis given the low lung volumes. A pneumonia could also have a similar appearance in the appropriate clinical setting. ACT 112: Negative or not required by law. Electronically signed by: Donavon Robles M.D. 02/29/2020 12:36 PM
[2020-02-29] MEDS: cefTRIAXone SODIUM 2,000 MG in DEXTROSE 5% 50 ML IV SCH (14:15)
[2020-02-29] MEDS: DOXYCYCLINE HYCLATE 100 MG CAP PO SCH ×2 (14:15→20:27)
--- NOTE | 2020-02-29 14:56 | Urology Progress Note ---
Date of Service February 29, 2020 Assessment & Plan (1) Kidney stones: Assessment Distal right ureteral calculus question passed No urologic intervention planned at this time Continue to strain urine Subjective Patient's afebrile vital signs are stable When asked if he is having any pain he says yes but cannot tell where the pain is due to his disability The nurse who is taking care of him today said he has been voiding. I have not seen a stone yet but he has had some incontinent episodes where the stone may have been missed His abdomen is soft I reviewed his CT scan he is a 2 mm stone in the intramural tunnel of the right ureter. He had a KUB done today which I also reviewed there were no stones seen in the distal right ureter so the stone seen on CT may have passed. Given the size there was a high likelihood that it would pass on its own No urologic intervention planned at this time Continue to strain urine Results & Data Vital Signs (Past 12 Hours) Vital Signs Temp Pulse Resp BP Pulse Ox 02/29/20 07:36 36.9 C 79 18 148/94 H 94 PG Care Time/CCT Total # of Minutes Spent Total Time Spent with Patient: Total time spent is greater than 50% in coordination of care (as documented) at patient's floor/unit and/or counseling p atient: Coding Level of Care Code 10777 Subseq Hosp Care Lvl 1 Diagnoses Kidney stones N20.0
[2020-02-29] MEDS ORDERED: Nursing to Pharmacy Communication ONE (15:28)
--- NOTE | 2020-02-29 17:17 | Hospitalist Progress Note ---
Date of Service February 29, 2020 Assessment & Plan (1) Abdominal pain: (2) Hydronephrosis with urinary obstruction due to renal calculus: Patient is a 39 yr male with H/O Intellectual disability, schizophrenia, major depressive disorder, seizure disorder with last known seizure at the age of 23, T2DM, HTN, GERD, obesity who presents to ED from [facility] secondary to tachycardia, tachypnea and inability to communicate needs. Altered Mental Status Possible Toxic Encephalopathy--Intolerance to Ona Difficult to asses given Lethargy/intellectual disability CT head:No acute intracranial abnormality. Ona discontinued--OK as per his Psychiatrist Dr. Mc Ona levels:normal Monitor mental status Blood Cultures: No growth to date Mental status improved Ureteral Stone Obstructive Uropathy --CT scan abd/pelvis 4 mm obstructing calculus protruding from the right vesicoureteral junction. This causes mild to moderate right-sided hydroureteronephrosis. Slightly heterogeneous enhancement of the right kidney, likely related to obstruction/hydronephrosis. Correlate clinically and with urinalysis for evidence of superimposed urinary tract infection. --Continue IV fluids, Flomax --Appreciate Urology Input --Pain control --Monitor renal function --Could have passed a stone --Continue to strain urine --Repeat KUB showed no stone Abnormal UA: Likely Contamination Less likely UTI Urine Cx:Staph species On Rocephin Atelectasis Less likely Pneumonia CXR:Progressive bibasilar densities, right greater than left. This favors atelectasis given the low lung volumes. A pneumonia could also have a similar appearance in the appropriate clinical setting. Normal Procalcitonin Saturating well on Room air Incentive Spirometry On Rocephin, Doxy Empirically (3) Intellectual disability: (4) Schizophrenia: continue haloperidol, gabapentin Ona discontinued (? Intolerance) Discussed with Psychiatry ([phone]) on 02/28/20 (5) Seizures: no acute issues According to records/pt last seizure at age 23 continue gabapentin (6) Hypertension: BP mildly elevated continue Metoprolol, Diltiazem Monitor (7) Diabetes mellitus: Diet Controlled Hb A1C:6.5 Novolog sliding scale per protocol monitor BGs (8) GERD (gastroesophageal reflux disease): continue PPI (9) DVT prophylaxis: Heparin SQ Code Status Full Code Disposition: [facility] Admission and Anticipated Discharge Date Admission Date: February 27, 2020 Subjective Patient is seen and examined at bedside More alert, awake today History is limited due to Intellectual disability KUB done today showed no stones CXR suggestive of progressive bibasilar densities, right greater than left. No plan for urological procedure planned. Review of Systems Review of Systems: All systems reviewed & are unremarkable except as noted in HPI & below Physical Exam Physical Exam: Physical Exam: Vitals signs as noted above General Appearance:Obese, no apparent distress Head: normocephalic, Atraumatic Eyes: normal inspection, EOMI Neck: supple, Trachea midline Respiratory/Chest: Normal breath sounds, CTA, No accessory muscle use Cardiovascular: S1, S2, No murmur Abdomen/GI:Soft, Non tender, Bowel sounds present Extremities/Musculoskelatal:normal inspection, no edema Neurologic/Psych:Moves all extremities, Lethargic Skin: normal color, warm Results & Data Results & Data ([facility]) Vital Signs (Past 12 Hours) Vital Signs Temp Pulse Resp BP Pulse Ox 02/29/20 15:55 36.6 C 89 16 158/91 H 94 02/29/20 07:36 36.9 C 79 18 148/94 H 94 Laboratory Results Short CBC 02/29/20 Range/Units 05:39 WBC 11.97 H (4.8-10.8) K/uL Hgb 13.9 L (14.0-18.0) g/dL Hct 42.6 (42-52) % Plt Count 420 H (130-400) K/uL BMP 02/29/20 05:39 Sodium 142 Potassium 3.6 Chloride 110 H Carbon Dioxide 25 BUN 12 Creatinine 0.82 Glucose 87 Calcium 8.3 L (1) Abdominal pain Abdominal location: left lower quadrant Qualified Code(s): R10.32 - Left lower quadrant pain
[2020-02-29] MEDS: TAMSULOSIN HCL 0.4 MG CAP PO SCH (20:26)
[2020-03-01] MEDS: LACTATED RINGER'S 1,000 ML IV SCH ×2 (01:19→14:51)
[2020-03-01 05:43] LABS: Hematocrit (blood only) 43.8 % (42-52); Hemoglobin 14.1 g/dL (14.0-18.0); Mean Corpuscular Hemoglobin 28.5 pg (25-34); Mean Corpuscular Hgb Conc 32.2 g/dL (32-36); Mean Corpuscular Volume 88.5 fL (80-100); Mean Platelet Volume 9.4 fL (7.4-10.4); Platelet Count 391 K/uL (130-400); RDW Coefficient of Variation 13.9 % (11.5-14.5); Red Blood Count 4.95 M/uL (4.7-6.1); White Blood Count 10.86 K/uL (4.8-10.8)
[2020-03-01 06:03] LABS: BUN Creatinine Ratio 16.9 (10-20); Blood Urea Nitrogen 13 mg/dl (7-18); Calcium 8.6 mg/dl (8.5-10.1); Carbon Dioxide 24 mmol/L (21-32); Chloride 109 mmol/L (98-107); Est GFR (African American) 134.9; Est GFR (Non-African American) 116.4; Glucose 89 mg/dl (70-99); Potassium 3.7 mmol/L (3.5-5.1); Sodium 141 mmol/L (136-145)
[2020-03-01] MEDS: HEPARIN SOD 5,000 UNIT/0.5 ML VIAL SQ SCH ×2 (06:09→13:44)
[2020-03-01] MEDS: KETOROLAC TROMETHAMINE 15 MG/ML VIAL IV PRN (07:56)
[2020-03-01] MEDS: LORATADINE 10 MG TAB PO SCH (08:38)
[2020-03-01] MEDS: PANTOprazole 40 MG TAB PO SCH (08:38)
[2020-03-01] MEDS: GABAPENTIN 300 MG CAP PO SCH (08:38)
[2020-03-01] MEDS: dilTIAZem HCL 120 MG CAPCR PO SCH (08:38)
[2020-03-01] MEDS: haloperidoL 5 MG TAB PO SCH (08:38)
[2020-03-01] MEDS: METOPROLOL SUCC 50MG EXT REL TAB PO SCH (08:38)
[2020-03-01] MEDS: DOXYCYCLINE HYCLATE 100 MG CAP PO SCH (08:38)
[2020-03-01] MEDS: INSULIN ASPART 100 UNITS/ML 3 ML PEN SC SCH ×2 (08:39→12:29)
[2020-03-01] MEDS: cefTRIAXone SODIUM 2,000 MG in DEXTROSE 5% 50 ML IV SCH (13:43)
--- NOTE | 2020-03-01 14:07 | Hospitalist Progress Note ---
Date of Service March 01, 2020 Assessment & Plan (1) Abdominal pain: (2) Hydronephrosis with urinary obstruction due to renal calculus: Patient is a 39 yr male with H/O Intellectual disability, schizophrenia, major depressive disorder, seizure disorder with last known seizure at the age of 23, T2DM, HTN, GERD, obesity who presents to ED from [facility] secondary to tachycardia, tachypnea and inability to communicate needs. Altered Mental Status Possible Toxic Encephalopathy--Intolerance to [place]emberwick Difficult to asses given Lethargy/intellectual disability CT head:No acute intracranial abnormality. Pemberwick discontinued--OK as per his Psychiatrist Dr. Mc Pemberwick levels:normal Monitor mental status Blood Cultures: No growth to date Mental status seemed to back to baseline Needs follow-up with Dr. Mc upon discharge Ureteral Stone Obstructive Uropathy --CT scan abd/pelvis 4 mm obstructing calculus protruding from the right vesicoureteral junction. This causes mild to moderate right-sided hydroureteronephrosis. Slightly heterogeneous enhancement of the right kidney, likely related to obstruction/hydronephrosis. Correlate clinically and with urinalysis for evidence of superimposed urinary tract infection. --Continue IV fluids, Flomax --Appreciate Urology Input --Pain control --Monitor renal function --Could have passed a stone --Continue to strain urine --Repeat KUB showed no stone --Needs follow-up with urology in 3 to 4 weeks with repeat ultrasound Complicated UTI-POA Urine Cx:Coag Negative Staph On Rocephin, Doxycycline Atelectasis Less likely Pneumonia CXR:Progressive bibasilar densities, right greater than left. This favors atelectasis given the low lung volumes. A pneumonia could also have a similar appearance in the appropriate clinical setting. Normal Procalcitonin Saturating well on Room air Incentive Spirometry On Rocephin, Doxy as above Leukocytosis improving (3) Intellectual disability: (4) Schizophrenia: continue haloperidol, gabapentin Pemberwick discontinued (? Intolerance) Discussed with Psychiatry ([phone]) on 02/28/20 (5) Seizures: no acute issues According to records/pt last seizure at age 23 continue gabapentin (6) Hypertension: BP mildly elevated continue Metoprolol, Diltiazem Monitor (7) Diabetes mellitus: Diet Controlled Hb A1C:6.5 Novolog sliding scale per protocol monitor BGs (8) GERD (gastroesophageal reflux disease): continue PPI (9) DVT prophylaxis: Heparin SQ Code Status Full Code Disposition: Plan to discharge back to [facility] today Admission and Anticipated Discharge Date Admission Date: February 27, 2020 Subjective Patient is seen and examined at bedside Mental status seems to be back to baseline Time pain seems to be resolved Lying in bed comfortably Discussed with urology today Denies any chest pain, shortness of breath, dizziness, nausea, abdominal pain Review of Systems Review of Systems: All systems reviewed & are unremarkable except as noted in HPI & below Physical Exam Physical Exam: Physical Exam: Vitals signs as noted above General Appearance:Obese, no apparent distress Head: normocephalic, Atraumatic Eyes: normal inspection, EOMI Neck: supple, Trachea midline Respiratory/Chest: Normal breath sounds, CTA, No accessory muscle use Cardiovascular: S1, S2, No murmur Abdomen/GI:Soft, Non tender, Bowel sounds present Extremities/Musculoskelatal:normal inspection, no edema Neurologic/Psych:Moves all extremities, Lethargic Skin: normal color, warm Results & Data Results & Data ([facility]) Vital Signs (Past 12 Hours) Vital Signs Temp Pulse Resp BP Pulse Ox 03/01/20 07:27 37.1 C 75 16 138/84 94 Laboratory Results Short CBC 03/01/20 Range/Units 05:25 WBC 10.86 H (4.8-10.8) K/uL Hgb 14.1 (14.0-18.0) g/dL Hct 43.8 (42-52) % Plt Count 391 (130-400) K/uL BMP 03/01/20 05:25 Sodium 141 Potassium 3.7 Chloride 109 H Carbon Dioxide 24 BUN 13 Creatinine 0.75 Glucose 89 Calcium 8.6 (1) Abdominal pain Abdominal location: left lower quadrant Qualified Code(s): R10.32 - Left lower quadrant pain
--- NOTE | 2020-03-01 14:22 | Discharge Summary ---
Date of Service March 01, 2020 Admission HPI Per Admitting Provider This is a 39-year-old male who has significant past medical history of intellectual disability, schizophrenia, major depressive disorder, history of seizure disorder with last known seizure at the age of 23, T2DM, HTN, GERD, obesity who presents to ED from [facility] secondary to tachycardia, tachypnea and inability to communicate needs. History unreliable from patient given current state. I did speak with [facility] nurse Eliazar who states at baseline patient is very low functioning. He has most inability to maintain meaningful conversation, and mostly will reiterate speech. This morning when he got up they noted him to be tachycardic, tachypneic and inability to communicate what was going on; therefore, they sent him to ED for further evaluation. The patient was sent to the [facility] on 02/20/2020. He had otherwise been doing fine until today. He did not have anything to eat or drink yet today. In speaking with the patient he states that he has not felt well since last night. He complains of abdominal pain, nausea, feeling feverish and general malaise. He denies any documented fever, chills, sweats, chest pain, shortness of breath, palpitations, cough, hematemesis, hemoptysis, melena, hematochezia, change in bowel or urinary habits. Again ROS relatively unreliable. He denies any suicidal or homicidal ideations. When asked what kind of medical problems he has he states, "I do not know." He denies illicit drug use or overdose of illicit substance. He denies smoking. Hx alcohol use, "once in a [place] with a beer." Admission Exam Per Admitting Provider Physical Exam Physical Exam: Constitutional: Morbidly obese, male, acutely ill, WD/WN, vitals as above, NAD, lying in bed, tachypneic, answers yes/no questions Head: Normocephalic, Atraumatic Eyes: PERRL, conjunctivae normal, anicteric sclerae ENMT: external ear and nose normal, oropharynx dry mucous membranes Neck: trachea midline, no thyromegaly normal visual inspection Respiratory: increased respiratory effort, lungs clear to auscultation, no wheeze, rales, rhonchi. Normal insp/exp effort, no accessory muscle use Cardiovascular: RRR, no murmur, no edema Vessels: no JVD or carotid bruit Chest: normal inspection of chest Abdomen:protuberant abd, normal bowel sounds, soft, tender to palpation suprapubically, no hepatosplenomegaly Musculoskeletal: no cyanosis or clubbing,AROM to all extremities , L foot skin graft noted Skin: no rashes, warm and dry normal turgor Neurologic: PERRL, EOMI, accommodation nl, no face palsy, no dysarthria CN's II-XI intact bilaterally and moves all extremities Psychiatric: A+O to self and place, dysthymic affect Lymphatic: no cervical or axillary lymphadenopathy : deferred Principal Diagnosis UTI Ureteral Stone Encephalopathy Possible Pneumonia Discharge Data Allergies Allergy/AdvReac Type Severity Reaction Status Date / Time phenobarbital AdvReac Severe Becomes Unverified 02/27/20 12:46 very mean Consultations 02/27/20 14:07 ED Decision to Admit Stat 02/27/20 14:40 Consult Urology Routine Procedures Performed CT head:No acute intracranial abnormality. CT scan abd/pelvis 4 mm obstructing calculus protruding from the right vesicoureteral junction. This causes mild to moderate right-sided hydrouret eronephrosis. Slightly heterogeneous enhancement of the right kidney, likely related to obstruction/hydronephrosis. Correlate clinically and with urinalysis for evidence of superimposed urinary tract infection. Ordered Studies 02/27/20 12:06 CT abd pelvis IV con only Stat CT head/brain wo con Stat Hospital Course (1) Abdominal pain: (2) Hydronephrosis with urinary obstruction due to renal calculus: Patient is a 39 yr male with H/O Intellectual disability, schizophrenia, major depressive disorder, seizure disorder with last known seizure at the age of 23, T2DM, HTN, GERD, obesity who presents to ED from [facility] secondary to tachycardia, tachypnea and inability to communicate needs. Altered Mental Status Possible Toxic Encephalopathy--Intolerance to Hurt Difficult to asses given Lethargy/intellectual disability CT head:No acute intracranial abnormality. Hurt discontinued--OK as per his Psychiatrist Dr. Mc Hurt levels:normal Monitor mental status Blood Cultures: No growth to date Mental status seemed to back to baseline Needs follow-up with Dr. Mc upon discharge Ureteral Stone Obstructive Uropathy --CT scan abd/pelvis 4 mm obstructing calculus protruding from the right vesicoureteral junction. This causes mild to moderate right-sided hydroureteronephrosis. Slightly heterogeneous enhancement of the right kidney, likely related to obstruction/hydronephrosis. Correlate clinically and with urinalysis for evidence of superimposed urinary tract infection. --Continue IV fluids, Flomax --Appreciate Urology Input --Pain control --Monitor renal function --Could have passed a stone --Continue to strain urine --Repeat KUB showed no stone --Needs follow-up with urology in 3 to 4 weeks with repeat ultrasound Complicated UTI-POA Urine Cx:Coag Negative Staph On Rocephin, Doxycycline Atelectasis Less likely Pneumonia CXR:Progressive bibasilar densities, right greater than left. This favors atelectasis given the low lung volumes. A pneumonia could also have a similar appearance in the appropriate clinical setting. Normal Procalcitonin Saturating well on Room air Incentive Spirometry On Rocephin, Doxy as above Leukocytosis improving (3) Intellectual disability: (4) Schizophrenia: continue haloperidol, gabapentin Hurt discontinued (? Intolerance) Discussed with Psychiatry ([phone]) on 02/28/20 (5) Seizures: no acute issues According to records/pt last seizure at age 23 continue gabapentin (6) Hypertension: BP mildly elevated continue Metoprolol, Diltiazem Monitor (7) Diabetes mellitus: Diet Controlled Hb A1C:6.5 Novolog sliding scale per protocol monitor BGs (8) GERD (gastroesophageal reflux disease): continue PPI (9) DVT prophylaxis: Heparin SQ Code Status Full Code Disposition: Plan to discharge back to [facility] today Total Time Total Time Spent Total Time Spent (In Minutes): 42 minutes Total Time Includes: Examination of the Patient, Discharge Planning, Medication Reconciliation, Communication With Other Providers and Other Discharge Plan Discharge Items Patient Disposition: Transfer [facility] Reason For Visit: RENAL STONE,ABDOMINAL PAIN Discharge Diagnosis: UTI Ureteral Stone Encephalopathy Possible Pneumonia Condition on Discharge: Good Activity: Resume your previous activity Exercise/Sports: Gradually increase as tolerated Non-emergency contact: Primary Care Provider, Urologist and Psychiatrist Call non-emergency contact if: you have any medication questions, your symptoms worsen, your pain is not controlled, your pain is worsening, your pain is unusual for you, your pain is concerning for you and you have a fever Follow-up/Referrals: [facility] [Other] Diet: Carb Consistent or DM2 Addtl Attending Provider Instructions: Follow-up with your primary care physician/Psychiatrist in 1 week Follow-up with your urologist Dr.Charles Parker/Eliceo in 3-4 weeks with repeat Ultrasound Complete antibiotic course for possible pneumonia, urinary tract infection as prescribed (Ceftin and Doxycycline for 5 more days) Seek immediate medical attention if your symptoms reoccur or worsen Pending Studies at Discharge: No Stand-Alone Forms: My [facility] Medications and DC Order Prescriptions: New doxycycline hyclate 100 mg Capsule 100 mg PO BID Qty: 11 RF: 0 cefdinir 300 mg capsule 300 mg PO BID Qty: 11 RF: 0 Continued hydroxyzine pamoate 100 mg Capsule 100 mg PO HS RF: 0 metoprolol succinate 50 mg Tablet Extended Release 24 Hr 150 mg PO QAM RF: 0 tamsulosin [Flomax] 0.4 mg Capsule 0.4 mg PO HS RF: 0 pantoprazole 40 mg Tablet,Delayed Release (Dr/Ec) 40 mg PO QAM RF: 0 haloperidol 10 mg Tablet 10 mg PO BID RF: 0 gabapentin 300 mg Capsule 300 mg PO BID RF: 0 diltiazem HCl [Cardizem CD] 120 mg Capsule,Extended Release 24hr 120 mg PO QAM RF: 0 loratadine [Claritin] 10 mg Tablet 10 mg PO QAM RF: 0 Discontinued lithium carbonate 450 mg Tablet Extended Release 450 mg PO BID RF: 0 Discharge Orders: Discharge Order (Routine); Ordered 03/01/20 Ordered By: Jorge Claudio/Other Patient Handouts: Diabetes Type 2 Managing Admission Data Admit Date/Time: 02/27/20 14:25 Attending Provider: Jorge Woods Admit Provider: Kaylie Santoro Other Providers: Wei Parker ; Kaylie Santoro Other Interventions: Discharge Summary Assessment (RN) Last Done: 03/01/20 15:35 DC Date/Time DO NOT enter until pt leaves facility: 03/01/20 16:20
[2020-03-02 01:44] LABS: Codeine Urine NEGATIVE ng/mL (<50); Hydrocodone Urine NEGATIVE ng/mL (<50); Hydromor Urine NEGATIVE ng/mL (<50); Morphine Urine 1370 ng/mL (<50); Norhydrocodone Conf Ur NEGATIVE ng/mL (<50); Noroxycodone Urine NEGATIVE ng/mL (<50); Oxycodone Urine NEGATIVE ng/mL (<50); Oxymorph Urine NEGATIVE ng/mL (<50)
== END 2020-03-01 16:20 ==
LOC: ED 11:41 → INTOOBSV 14:25 → 3E 14:25 → SUATTDRO 14:25 → 3E 16:02